=== PATIENT | female | born 1965 | race Caucasian/White ===

== ENCOUNTER 2024-05-22 17:03 | Emergency (ER) | payer OTHER, SELFPAY ==
[2024-05-22] VITALS (11 sets, daily range): BP systolic 124–163; BP diastolic 66–83; PULSE 48–85; RESP 16–18; TEMP 36.6–36.9; O2SAT 95–100; BMI 28.3
--- NOTE | 2024-05-22 17:41 | PC.NURSE ---
Case discussed with MD Couch; verbal order for 15mg Ketorolac IV, labs--hold on CT.
[2024-05-22 17:57] LABS: Add Manual Diff / Slide Review NO; Basophils Absolute Auto 0 /uL (0-100); Basophils Percent Auto 0.5 % (0-2); Eosinophils Absolute Auto 100 /uL (0-450); Eosinophils Percent Auto 1.6 % (2-4); Hematocrit 40.3 % (36-46); Hemoglobin 13.9 g/dL (12.0-16.0); Lymphocytes Absolute Auto 3100 /uL (1100-4500); Lymphocytes Percent Auto 57.2 % (25-40); Mean Corpuscular HGB Conc 34.5 % (30-36); Mean Corpuscular Hemoglobin 31.5 PG (26-34); Mean Corpuscular Volume 91.2 fL (80-100); Monocytes Absolute Auto 300 /uL (0-900); Monocytes Percent Auto 6.3 % (3-14); Neutrophils Absolute Auto 1900 /uL (1500-7000); Neutrophils Percent Auto 34.4 % (50-75); Platelet Count 248 X10^3/uL (150-400); Red Blood Cell Count 4.42 X10^6/uL (4.0-5.2); Red Cell Distribution Width 12.5 % (11.6-14.8); White Blood Cell Count 5.5 X10^3/uL (4.5-11.0)
[2024-05-22 18:03] LABS: INR 1.1 (0.9-1.3); Prothrombin Time 12.3 SECONDS (9.4-12.5)
--- NOTE | 2024-05-22 18:04 | EKG_ITS ---
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
[2024-05-22 18:06] LABS: PTT Partial Thromboplastin Tim 40 SECONDS (25.1-36.5)
[2024-05-22 18:08] LABS: Alanine Aminotransferase 17 IU/L (<35); Albumin 4.4 g/dL (3.5-5.0); Albumin Globulin Ratio 1.7 (1.0-2.8); Alkaline Phosphatase 82 U/L (38-126); Aspartate Aminotransferase 25 IU/L (14-36); Bilirubin Total 0.6 mg/dL (0.2-1.3); Blood Urea Nitrogen 14 mg/dL (7-17); Calcium 9.9 mg/dL (8.4-10.2); Carbon Dioxide 27 mmol/L (22-32); Chloride 103 mmol/L (98-107); Creatine Kinase 54 U/L (30-135); Estimated Glomerular Filt Rate > 60 mL/min (>60); Globulin 2.6 g/dL (1.7-4.1); Glucose 132 mg/dL (70-100); HEMOLYSIS < 15 (0-50); Lipase 62 U/L (23-300); Potassium 4.1 mmol/L (3.4-5.1); Sodium 137 mmol/L (137-145)
[2024-05-22] MEDS: KETOROLAC 30 MG/ML VIAL 15 MG IV (18:09)
[2024-05-22] MEDS: ONDANSETRON 4 MG/2 ML INJ IV ×2 (18:09→21:25)
[2024-05-22 18:20] LABS: NT-proBNP (BNP-Adult 18+) 130 pg/mL (<125); Troponin I < 0.012 ng/mL (0.01-0.034)
[2024-05-22 18:40] LABS: Magnesium 1.9 mg/dL (1.6-2.3)
--- NOTE | 2024-05-22 19:55 | PC.NURSE ---
Pt ambulatory to room. Pt feels weak throughout extremities. Denies numbness or tingling to face. Did have that before.
--- NOTE | 2024-05-22 20:43 | ED_ITS ---
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 Patient has had issues with ringing in her ears or tinnitus and dizziness since September. She notes she had 3 surgeries including cholecystectomy left adrenal gland excision and gastric sleeve the last 1 was in August of 2023 after that September started having dizziness or vertigo symptoms and tinnitus which has been chronic. She has also had headaches which he states pretty much constant never resolved she describes it is more in the occipital crease area and radiating towards her ears. She states she has had episodes on and off for she will get dizzy has a headache photophobia some nausea vomiting. Today an episode happened while she was on a tele meeting with her boss. She she interactive with them through the meeting went took a muscle relaxer and slept for several hours and went awoke still felt very groggy. She states no facial droop no lateralizing weakness. She states this was like her other episodes which has been fairly frequent but more intense. She also notes some numbness of the left side of the face which happens with these episodes as well. She has seen General surgery, her diabetic doctor, Cardiology, ENT. ENT thought she was maybe having vestibular migraines and tinnitus. Her primary care thinks they maybe more related to a musculoskeletal issue. She is currently on gabapentin 300 b.i.d., Zetia stool softener Tylenol daily and Tylenol No. 3 for breakthrough pain for her headaches. She has had a cholecystectomy left adrenal gland excision, gastric sleeve, total hysterectomy and does have repair at C5 with metal. Quit smoking 3 years ago no regular alcohol, uses marijuana daily for symptoms. Her primary care is Dr. Chávez. She saw Dr. Jake Bean for ENT. Patient was scheduled for an MR of her brain in the next month. She has not had any prior imaging of her brain such as head CT in the past. Related Data Previous Rx's Medication Instructions Recorded meclizine 25 mg chewable tablet 50 mg (2 x 25 mg) PO QID PRN 05/22/24 dizziness #20 tabs Allergies Allergy/AdvReac Type Severity Reaction Status Date / Time hydrocodone Allergy Verified 05/22/24 17:43 hydromorphone Allergy Verified 05/22/24 17:44 oxycodone Allergy Verified 05/22/24 17:43 Sulfa (Sulfonamide Allergy Verified 05/22/24 17:43 Antibiotics) Review of Systems Review of Systems ROS Unobtainable: All systems reviewed & are unremarkable except as noted in HPI and below Patient History Social History Smoking Status: Former smoker Smoking Status: Former smoker Substance Use Type: marijuana Exam Narrative Exam Narrative: GEN: well nourished, well appearing female, alert and oriented x 3, patient appears to be in mild distress. Patient wearing sunglasses. HEENT: Atraumatic, pupils are equal round reactive to light, extraocular movements are intact, nares are clear, TMs are clear with no fluid, there is no conjunctival pallor. Throat is clear without any exudates, erythema, tonsillar enlargement or uvular deviation, normal speech no facial droop. HEART: Regular rate and rhythm without murmur, clicks, rubs. Pulses are equal in upper and lower extremities LUNGS:Lungs clear to auscultation, no wheezes, rales, crackles, chest moves symmetrically ABD:bowel sounds normal, soft, non-tender, no guarding, rebound, rigidity, no masses noted, no hepatosplenomegaly MSCL: Non-tender, no muscle atrophy, muscles strength 5/5 upper and lower extremities, full range of motion, normal gait NEURO:CN 2-12 intact, sensation normal. Initial Vital Signs Initial Vital Signs: Vital Signs Temperature 97.9 F 05/22/24 17:24 Pulse Rate 68 05/22/24 17:24 Respiratory Rate 16 05/22/24 17:24 Blood Pressure 124/75 05/22/24 17:24 Pulse Oximetry 99 05/22/24 17:24 Oxygen Delivery Method Room Air 05/22/24 17:24 Course Orders Ordered: ED Orders 05/22/24 21:03 CT head/brain wo con Stat Discontinued Medications Ketorolac Tromethamine (Ketorolac 30 Mg/Ml Vial) 15 mg IV NOW ONE Stop: 05/22/24 17:49 Last Admin: 05/22/24 18:09 Dose: 15 mg Documented By: LIEN Meclizine HCl (Meclizine Hcl 12.5 Mg Tablet) 50 mg PO NOW ONE Stop: 05/22/24 21:03 Last Admin: 05/22/24 21:10 Dose: 50 mg Documented By: Ondansetron HCl (Ondansetron 4 Mg/2 Ml Inj) 4 mg IV NOW PRN PRN Reason: Nausea And Vomiting Last Admin: 05/22/24 18:09 Dose: 4 mg Documented By: LIEN Ondansetron HCl (Ondansetron 4 Mg Odt) 4 mg SL NOW PRN PRN Reason: Nausea And Vomiting Ondansetron HCl (Ondansetron 4 Mg/2 Ml Inj) 4 mg IV NOW ONE Stop: 05/22/24 21:22 Last Admin: 05/22/24 21:25 Dose: 4 mg Documented By: Vital Signs Vital signs: Vital Signs - 8 hr 05/22/24 19:31 05/22/24 19:32 05/22/24 19:32 Temperature Pulse Rate 57 L 54 L Respiratory Rate Blood Pressure 155/79 H Pulse Oximetry 100 98 Oxygen Delivery Method 05/22/24 20:00 05/22/24 20:00 05/22/24 20:30 Temperature Pulse Rate 54 L 60 Respiratory Rate Blood Pressure 125/72 Pulse Oximetry 95 96 Oxygen Delivery Method 05/22/24 20:30 05/22/24 21:00 05/22/24 21:01 Temperature Pulse Rate 58 L 54 L Respiratory Rate Blood Pressure 129/73 Pulse Oximetry 100 100 Oxygen Delivery Method 05/22/24 21:01 05/22/24 21:30 05/22/24 21:30 Temperature Pulse Rate 48 L Respiratory Rate Blood Pressure 153/77 H 136/66 Pulse Oximetry 97 Oxygen Delivery Method 05/22/24 22:00 05/22/24 22:01 05/22/24 22:01 Temperature Pulse Rate 48 L 50 L Respiratory Rate Blood Pressure 163/83 H Pulse Oximetry 97 100 Oxygen Delivery Method 05/22/24 22:37 Temperature 98.4 F Pulse Rate 85 Respiratory Rate 18 Blood Pressure 154/78 H Pulse Oximetry 98 Oxygen Delivery Method Room Air MDM - Headache Lab Data 05/22/24 17:49 05/22/24 17:49 Labs: Lab Results 05/22/24 Range/Units 17:49 WBC 5.5 (4.5-11.0) X10^3/uL RBC 4.42 (4.0-5.2) X10^6/uL Hgb 13.9 (12.0-16.0) g/dL Hct 40.3 (36-46) % MCV 91.2 (80-100) fL MCH 31.5 (26-34) PG MCHC 34.5 (30-36) % RDW 12.5 (11.6-14.8) % Plt Count 248 (150-400) X10^3/uL Neut % (Auto) 34.4 L (50-75) % Lymph % (Auto) 57.2 H (25-40) % [place] % (Auto) 6.3 (3-14) % Eos % (Auto) 1.6 L (2-4) % Baso % (Auto) 0.5 (0-2) % Neut # (Auto) 1900 (1701-6808) /uL Lymph # (Auto) 3100 (4662-7581) /uL [place] # (Auto) 300 (0-900) /uL Eos # (Auto) 100 (0-450) /uL Baso # (Auto) 0 (0-100) /uL PT 12.3 (9.4-12.5) SECONDS INR 1.1 (0.9-1.3) APTT 40 H (25.1-36.5) SECONDS Sodium 137 (137-145) mmol/L Potassium 4.1 (3.4-5.1) mmol/L Chloride 103 (98-107) mmol/L Carbon Dioxide 27 (22-32) mmol/L BUN 14 (7-17) mg/dL Creatinine 0.50 L (0.52-1.04) mg/dL Estimated GFR > 60 (>60) mL/min BUN/Creatinine Ratio 28.0 H (6-22) Glucose 132 H (70-100) mg/dL Calcium 9.9 (8.4-10.2) mg/dL Magnesium 1.9 (1.6-2.3) mg/dL Total Bilirubin 0.6 (0.2-1.3) mg/dL AST 25 (14-36) IU/L ALT 17 (<35) IU/L Alkaline Phosphatase 82 (38-126) U/L Total Creatine Kinase 54 (30-135) U/L Troponin I < 0.012 (0.01-0.034) ng/mL NT-Pro-B Natriuret Pep 130 H (<125) pg/mL Total Protein 7.0 (6.3-8.2) g/dL Albumin 4.4 (3.5-5.0) g/dL Globulin 2.6 (1.7-4.1) g/dL Albumin/Globulin Ratio 1.7 (1.0-2.8) Lipase 62 (23-300) U/L Point of Care Testing Glucose POC [address] scan - head: Radiologist's Impression: Close Head CT (Signed) Govind Sky - 05/22/24 [place] [address] CT Scan Report Signed Patient: Kalyani Rosado MR#: [id number] : 1965 Acct:[id number] Age/Sex: 58 / F Date of Service: 05/22/24 Loc: ED Accession Number: [id number] Procedure: CT head/brain wo con Ordering Provider: Charisse Castano D.O. PROCEDURE: CT HEAD/BRAIN WO CON INDICATIONS: History of dizziness, tinnitus headaches with photophobia TECHNIQUE: Noncontrast 4.5 mm thick angled axial sections acquired from the foramen magnum to the vertex, with coronal and sagittal reformats. For radiation dose reduction, the following was used: automated exposure control, adjustment of mA and/or kV according to patient size. COMPARISON: None. FINDINGS: Image quality: Diagnostic. CSF spaces: Basal cisterns are patent. No extra-axial fluid collections. Ventricles are normal in size and shape. Brain: No midline shift. No intracranial masses or hemorrhage. Benign calcification in left basal ganglia is seen. Cullen-white matter interface is normal. Skull and face: Calvarium and visualized facial bones are intact, without suspicious lesions. Sinuses: Visualized sinuses and mastoids are clear. IMPRESSION: No acute intracranial pathology. Dictated by: Govind Sky M.D. on 05/22/2024 at 21:25 Approved by: Govind Sky M.D. on 05/22/2024 at 21:26 ECG Data Attestation: I personally reviewed and interpreted this ECG as follows: Interpretation: Sinus bradycardia rate of 56 OH 154 QRS is 78 QTC 389, no acute ST changes. MDM Narrative Medical decision making narrative: 58-year-old female who had a more intense episode of dizziness, headache, nausea vomiting with photophobia numbness of the face she has had episodes like this on and off since September but states it was a bit more intense than typical. She has had quite a bit of workup seen Cardiology, ENT through primary care she has not had a head CT she was scheduled for an MR of her brain in the next month. Besides increasing intensity has not had any other acute neurologic changes. Suspicion for TIA or stroke is quite low as it has been ongoing for [address] was obtained showed no acute change Labs overall did not show any clear cause. Labs show white count of 5.5 hemoglobin of 13.9 platelets of 240 predominance of lymphocytes. INR is 1.1 sodium is 137 potassium 4.1 chloride 103 CO2 is 27 BUN 14 creatinine 0.5, glucose is 132 calcium is 9.9 Mag is 1.9 LFTs are negative troponins less than 0.012 BNP is 130. Head CT shows no acute change. EKG shows sinus bradycardia Patient received Zofran, Toradol and meclizine here in the department. States Toradol was helpful for the headache although did not completely resolve it. She has not had meclizine in the past and was open to trying . Patient states meclizine was quite helpful. She is feeling improved. Reviewed her findings from today she has not MR at the end of the month. She has a referral to Neurology can not be seen until August but is in process of setting that up sounds like she is going through a very appropriate workup process. Discussed patient's findings today my suspicion for TIA or stroke is quite low no head bleed mass or other changes on head CT discussed return precautions. Discharge Plan Departure Patient Disposition: Home Clinical Impression: Headache Activity Restrictions/Additional Instructions: Follow-up with your physician I do think it would be very appropriate to keep your MRI appointment. Continue your home medications as prescribed. If he found the Meclizine helpful you can take 1-2 tablets every 6 hours as needed. It is available [id number] at [facility]. A prescription was sent to [facility] in [place]. Please return for rapidly worsening symptoms, fevers, passing out, sudden vision changes difficulty with speech or movement, persistent vomiting, new chest pain or shortness of breath or other new or concerning changes. Prescriptions: New meclizine 25 mg tablet,chewable 50 mg PO QID PRN (Reason: dizziness) Qty: 20 0RF Referrals: Christie Chávez MD [Primary Care Provider] - Stand Alone Forms: Patient Portal/API
--- NOTE | 2024-05-22 21:03 | DI.CT.S_ITS ---
PROCEDURE: CT HEAD/BRAIN WO CON INDICATIONS: History of dizziness, tinnitus headaches with photophobia TECHNIQUE: Noncontrast 4.5 mm thick angled axial sections acquired from the foramen magnum to the vertex, with coronal and sagittal reformats. For radiation dose reduction, the following was used: automated exposure control, adjustment of mA and/or kV according to patient size. COMPARISON: None. FINDINGS: Image quality: Diagnostic. CSF spaces: Basal cisterns are patent. No extra-axial fluid collections. Ventricles are normal in size and shape. Brain: No midline shift. No intracranial masses or hemorrhage. Benign calcification in left basal ganglia is seen. Cullen-white matter interface is normal. Skull and face: Calvarium and visualized facial bones are intact, without suspicious lesions. Sinuses: Visualized sinuses and mastoids are clear. IMPRESSION: No acute intracranial pathology. Dictated by: Govind Sky M.D. on 05/22/2024 at 21:25 Approved by: Govind Sky M.D. on 05/22/2024 at 21:26
[2024-05-22] MEDS: MECLIZINE HCL 12.5 MG TABLET 50 MG PO (21:10)
--- NOTE | 2024-05-22 21:19 | PC.NURSE ---
Pt feeling nauseated. Dr Castano notified. Verbal orders received.
--- NOTE | 2024-05-22 22:01 | PC.NURSE ---
Pt reports feeling much better. No nausea at this time. Reports that the room is not spinning as much as it was.
== END 2024-05-22 22:38 | disposition home or self-care (01) ==
PROVIDERS: Emergency Medicine; Emergency Provider Emergency Medicine; PCP Internal Medicine Geriatric Medicine
DX: R51.9 Headache, unspecified (principal); R11.2 Nausea with vomiting, unspecified; R00.1 Bradycardia, unspecified; H53.149 Visual discomfort, unspecified; R20.0 Anesthesia of skin
CPT/HCPCS: 70450; 80053; 82550; 82962; 83690; 83735; 83880; 84484; 85025; 85610; 85730; 93005; 96374; 96375; 96376; 99284; J1885; J2405